=== PATIENT | male | born 1955 | race American Indian/Alaskan Native ===

== ENCOUNTER 2017-04-21 16:51 | Emergency (ER) | payer MEDICARE ==
[2017-04-21 16:51] VITALS: BMI 28.5
[2017-04-21 17:48] VITALS: BP 124/78; PULSE 82; RESP 18; TEMP 98.4; O2SAT 98
--- NOTE | 2017-04-21 19:49 | C.PDOC ---
History Of Present Illness This patient left the ED without being seen. I had no contact with this patient and am required to write a chart solely for documentation purposes. Time Seen by Provider: 04/21/17 18:31 Chief Complaint (Nursing): Upper Extremity Problem/Injury Past Medical History Vital Signs: Last Vital Signs Temp 98.4 F 04/21/17 17:45 Pulse 82 04/21/17 17:45 Resp 18 04/21/17 17:45 BP 124/78 04/21/17 17:45 Pulse Ox 98 04/21/17 22:48 - Medical History PMH: Diabetes (niddm), HTN, Hypercholesterolemia Denies: Depression - [employer] Procedures INJECT/INFUSE NEC (09/18/05) TETANUS TOXOID ADMINIST (11/24/12) Family History: States: Unknown Family Hx - Social History Hx Tobacco Use: Yes Hx Alcohol Use: No Hx Substance Use: Yes - Immunization History Hx Tetanus Toxoid Vaccination: Yes Hx Influenza Vaccination: No Hx Pneumococcal Vaccination: No ED Course And Treatment O2 Sat by Pulse Oximetry: 98 Disposition - Disposition Disposition: ELOPEMENT - ER ONLY Disposition Time: 19:48 Condition: UNKNOWN Forms: [facility] ([place]) - Clinical Impression Clinical Impression: Arm pain
== END 2017-04-21 19:48 | disposition left against medical advice (07) ==
LOC: C.ER 16:51
DX: M79.603 Pain in arm, unspecified (principal); Z02.9 Encounter for administrative examinations, unspecified

== ENCOUNTER 2017-05-04 09:59 | Emergency (ER) | payer MEDICARE ==
[2017-05-04 09:59] VITALS: BMI 28.5
[2017-05-04] MEDS ORDERED: Naproxen 550 mg Tab PO STA (10:32)
[2017-05-04] MEDS ORDERED: Naproxen 550 mg Tab PO ONE (10:38)
--- NOTE | 2017-05-04 10:44 | C.PDOC ---
History Of Present Illness 62 y/o male presents to ED with complaints of left shoulder pain intermittently for 2 years. Patient denies any new trauma, chest pain, weakness, numbness or any other complaints at this time. Time Seen by Provider: 05/04/17 10:25 Chief Complaint (Nursing): Upper Extremity Problem/Injury History Per: Patient History/Exam Limitations: no limitations Onset/Duration Of Symptoms: Intermittent Episodes Current Symptoms Are (Timing): Still Present Past Medical History Reviewed: Historical Data, Nursing Documentation, Vital Signs Vital Signs: Last Vital Signs Temp 97.7 F 05/04/17 10:02 Pulse 86 05/04/17 10:02 Resp 19 05/04/17 10:02 BP 156/80 H 05/04/17 10:02 Pulse Ox 100 05/04/17 10:46 - Medical History PMH: Diabetes (niddm), HTN, Hypercholesterolemia Surgical History: No Surg Hx - [facility] Procedures INJECT/INFUSE NEC (09/18/05) TETANUS TOXOID ADMINIST (11/24/12) Family History: States: No Known Family Hx - Social History Hx Tobacco Use: Yes Hx Alcohol Use: No Hx Substance Use: Yes - Immunization History Hx Tetanus Toxoid Vaccination: Yes Hx Influenza Vaccination: No Hx Pneumococcal Vaccination: No Review Of Systems Cardiovascular: Negative for: Chest Pain Respiratory: Negative for: Shortness of Breath Musculoskeletal: Positive for: Shoulder Pain Skin: Negative for: Rash Neurological: Negative for: Weakness, Numbness Physical Exam - Physical Exam Appears: Non-toxic, No Acute Distress Skin: Normal Color, Warm, Dry, No Rash Head: Atraumatic, Normacephalic Oral Mucosa: Moist Chest: Symmetrical Extremity: Normal ROM, Tenderness (Left shoulder ), Capillary Refill (<2 seconds ), No Deformity, No Swelling Extremity: Bilateral: Normal ROM Neurological/Psych: Oriented x3, Normal Motor, Normal Sensation ED Course And Treatment ECG: Interpreted By Me, Viewed By Me ECG Rhythm: Sinus Rhythm Interpretation Of ECG: LVH with repolarization Abnormality Rate From EC O2 Sat by Pulse Oximetry: 100 (RA) Pulse Ox Interpretation: Normal Medical Decision Making Medical Decision Making: shoulder pain x 2 years. pt states wanted evaluation as he was in er with another patient. no new trauma. Disposition - Disposition Referrals: Miller Dowd MD [Staff Provider] - [facility] [Outside] Disposition: HOME/ ROUTINE Disposition Time: 11:12 Condition: STABLE Additional Instructions: please follow up with specialist. return to er with worsening symptoms or concerns. Prescriptions: Naproxen [Naprosyn] 500 mg PO BID PRN #14 tab PRN Reason: Pain, Mild (1-3) Instructions: Shoulder Pain (ED) Forms: [employer] [facility] ([place]) - Clinical Impression Clinical Impression: Shoulder pain - Scribe Statement The provider has reviewed the documentation as recorded by the Joseph Alberts All medical record entries made by the Joseph were at my direction and personally dictated by me. I have reviewed the chart and agree that the record accurately reflects my personal performance of the history, physical exam, medical decision making, and the department course for this patient. I have also personally directed, reviewed, and agree with the discharge instructions and disposition.
[2017-05-04 11:21] VITALS: BP 148/83; PULSE 82; RESP 16; TEMP 98.4; O2SAT 98
--- NOTE | 2017-05-04 14:11 | RAD ---
PROCEDURE: Radiographs of the Left Shoulder HISTORY: shoulder pain COMPARISON: Left shoulder radiographs performed 01/21/16 FINDINGS: BONES: No acute displaced fracture. The distal clavicle and underlying ribs appear intact. JOINTS: No acute dislocation. Glenohumeral joint space narrowing. Mild superior subluxation of the distal clavicle re-identified in relation to the distal acromion. SOFT TISSUES: Soft tissues appear unremarkable. No evidence of radiopaque foreign body. IMPRESSION: No acute displaced fracture or dislocation evident. If symptoms persist or if there is continued clinical concern, x-ray follow-up in 7-10 days should be considered. Glenohumeral joint space narrowing. Mild superior subluxation of the distal clavicle re-identified in relation to the distal acromion.
--- NOTE | 2017-05-07 07:05 | CARD ---
APPROVED REPORT EKG Measurement Heart [id number] <Conclusion> Normal sinus rhythm Left ventricular hypertrophy with repolarization abnormality Abnormal ECG
== END 2017-05-04 11:21 | disposition home or self-care (01) ==
LOC: C.ER 09:59
DX: M25.512 Pain in left shoulder (principal)